=== PATIENT | female | born 1990 | race Caucasian/White ===

== ENCOUNTER 2024-12-02 23:59 | Emergency (ER) | payer OTHER, SELFPAY ==
[2024-12-03 00:03] VITALS: BP 135/82; PULSE 109; TEMP 36.8; O2SAT 100
--- OUTSIDE RECORDS SUMMARY | 2024-12-03 01:00 | XMS_ITS | Patient Health Record ---
Author Organization [facility] Address [address] [place] [address] Support Name Relationship Address Phone Malick Alta Guarantor Unknown Unavailable Allergies No Known Allergies Reason For Referral No Information Medications Medication SIG (Take, Route, Frequency, Duration) Notes Start Date End Date Status Nitrofurantoin Monohyd Macro 100 MG 1 capsule Orally Twice a day for 7 days 10/01/2023 Unknown Doxycycline Monohydrate 100 MG 1 tablet Orally Twice a day for 7 days 11/30/2023 Active Social History Tobacco Use: Social History Observation Description Date Details (start date - stop date) Never Smoker NA - NA Tobacco Control (Standard) Question Answer Notes Tobacco use: Nonsmoker Plan Of Treatment Pending Test Test Name Order Date URINALYSIS, COMPLETE W/REFLEX TO CULTURE (3020) 10/01/2023 URINALYSIS, COMPLETE W/REFLEX TO CULTURE (3020) 11/30/2023 RPR (DX) W/REFL TITER AND CONFIRMATORY T ESTING (83970) 11/30/2023 HCG, TOTAL, QL (9935) 11/30/2023 BV/VAGINITIS PANEL DNA PROBE (52183) 01/2024 HSV 1/2 IGG,TYPE SPECIFIC AB (6447) 01/2024 CHLAMYDIA/N. GONORRHOEAE RNA, TMA, UROGE NITAL (23004) 11/30/2023 HEPATITIS PANEL, GENERAL (6462) 11/30/19 HIV 1/2 ANTIGEN/ANTIBODY,FOURTH GENERATI ON W/RFL (55437) 11/30/2023 Insurance Providers Payer Name Payer Address Payer Phone Subscriber Number Group Number Insured Name Patient Relationship to Insured Coverage Start Date Coverage End Date [employer] [address] [place] [phone] [phone] [id number] Alta Teresa Self - patient is the insured Medical (General) History Medical History History ICD Code No major illness
--- OUTSIDE RECORDS SUMMARY | 2024-12-03 01:00 | XMS_ITS ---
Author Organization [facility] Address [address] [place] [address] Care Team Providers Care Lot Technician Name Role Phone [facility] Unavailable [phone] REASON FOR VISIT FU LAB ORDER Encounters Encounter Location Date Provider Diagnosis [facility] [address] [place] [address] 10/05/2023 [facility] Plan Of Treatment No Information Progress Notes * JAKYShaan CONTEHeDOB:1990 (34 yo F)Acc No.[id number]:10/05/2023 Progress Notes Patient: Alta ROCHA Provider: Jeet STODDARD [facility] :1990 A ge:32 Y S ex:Female Date:10/05/2023 Phone: Address:[address] [place] [address] [place], [id number] Subjective: * Chief Complaints: * 1 . FU LAB ORDER. * Medical History: Objective: * Vitals: Assessment: Plan: * Treatment: * Billing Information: * Visit Code: * Procedure Codes: * Electronic signature of [facility] on 12/03/2024 at 02:00 AM EDT Sign off status: Pending * Provider: Jeet STODDARD [facility] Date: 10/05/2023 Generated for Scarlet cornejo/Carlyn/Vimal on: 12/03/2024 02:00 AM EDT
[2024-12-03 01:15] VITALS: BP 109/80; PULSE 98; RESP 18; O2SAT 100
--- NOTE | 2024-12-03 01:31 | ED.GENADULT ---
HPI - General Adult General Chief complaint: Skin/Abscess/Foreign Body Stated complaint: redness and swelling to left eyebrow Time Seen by Provider: 12/03/24 00:22 History of Present Illness HPI narrative: This is a 34-year-old female presenting ED with chief complaint of swelling over her left eyebrow. Patient developed what she thought was a pimple and has got progressively worse. She has had some drainage but it is still tense and tight. 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 She has had this occur in the past. No involvement of the pain after eye movements. No systemic signs such as fever chills nausea vomiting diarrhea. Related Data Allergies Allergy/AdvReac Type Severity Reaction Status Date / Time No Known Allergies Allergy Verified 12/03/24 00:02 Exam Narrative: APPEARANCE: No apparent distress. Head: atraumatic. EYES: EOMI, NOSE: Atraumatic NECK: Trachea midline RESPIRATORY: No increased rate of breathing CARDIOVASCULAR: RRR, ABDOMINAL: Non-distended MUSCULOSKELETAl: No obvious deformities NEURO: Alert. Moving 4/4 extremities SKIN:: Subcentimeter area of swelling and tenderness over the left eyebrow with several small punctate areas between the eyebrows. PSYCHIATRIC: Normal affect Course Vital Signs Vital signs: Vital Signs Temperature 98.2 F 12/03/24 00:03 Pulse Rate 109 H 12/03/24 00:03 Blood Pressure 135/82 12/03/24 00:03 Pulse Oximetry 100 12/03/24 00:03 Oxygen Delivery Room Air 12/03/24 00:03 Temperature 98.2 F 12/03/24 00:03 Pulse Rate 98 12/03/24 01:15 Respiratory Rate 18 12/03/24 01:15 Blood Pressure 109/80 12/03/24 01:15 Pulse Oximetry 100 12/03/24 01:15 Oxygen Delivery Room Air 12/03/24 00:03 Medical Decision Making [facility] Narrative Medical decision making narrative: -Course: 34-year-old female presenting with what appears to be a large boil underneath her eyebrow. Discussed options such as incision and drainage but given her young age potential scarring to her face we have opted for warm compresses and a short course of antibiotics for staff to see that improves her symptoms. If they do not improve air spreading she will follow-up with her primary care physician or return to the ED for re-evaluation. -DDX includes but is not limited to: Abscess boil pimple carbuncle staph infection Vital Signs Vital Signs: Vital Signs Temperature 98.2 F 12/03/24 00:03 Pulse Rate 109 H 12/03/24 00:03 Blood Pressure 135/82 12/03/24 00:03 Pulse Oximetry 100 12/03/24 00:03 Oxygen Delivery Room Air 12/03/24 00:03 Temperature 98.2 F 12/03/24 00:03 Pulse Rate 98 12/03/24 01:15 Respiratory Rate 18 12/03/24 01:15 Blood Pressure 109/80 12/03/24 01:15 Pulse Oximetry 100 12/03/24 01:15 Oxygen Delivery Room Air 12/03/24 00:03 Discharge Plan Discharge Clinical Impression: Boil of head or scalp Patient Disposition: Home Condition: Stable Instructions: Antibiotic Form, Furunculosis and Carbunculosis (ED) Additional Instructions: Please use warm compresses. Complete a course of Bactrim. Please follow-up with your primary care physician for further management. If the infections spreads to your eye or you feel you are getting worse she can always return to the ED re-evaluation. Patient Language: [place] Prescriptions: New sulfamethoxazole-trimethoprim [Bactrim DS] 800-160 mg tablet 1 tablet PO Q12H 5 Days Qty: 10 0RF Follow-up/Referrals: PHYSICIAN,[employer] [Primary Care Provider] -
== END 2024-12-03 01:58 | disposition home or self-care (01) ==
PROVIDERS: Emergency Provider Emergency Medicine
DX: L02.02 Furuncle of face (principal)
CPT/HCPCS: 99283

== ENCOUNTER → 2024-12-16 21:40 | Emergency (ER) | payer OTHER, SELFPAY | END | disposition left against medical advice (07) | LOC: ANHED 23:11 | DX: Z53.21 Procedure and treatment not carried out due to patient leaving prior to being seen by health care provider (principal) | CPT/HCPCS: 99199 ==